=== PATIENT | male | born 1970 | race Caucasian/White ===

== ENCOUNTER 2020-02-28 09:39 | Emergency (ER) | payer SELFPAY ==
[2020-02-28] MEDS ORDERED: DEXAMETHASONE 4 MG TABLET PO ONE (11:49)
[2020-02-28] MEDS ORDERED: PENICILLIN G BENZATHINE 1.2 MILLION UNIT/2 ML DISP.SYRIN IM ONE (11:49)
--- NOTE | 2020-02-28 11:50 | ER Document Report ---
HPI - HPI Time Seen by Provider: 02/28/20 10:40 Pain Level: 2 Notes: 49-year-old male patient presenting with sore throat and body aches that began 2 days ago. Patient reports he did have a fever 2 days ago but has not had 1 since then. He is not concerned about Covid as he has not had any exposure to any people lately. He denies any chest pain or shortness of breath. He reports he has pain with swallowing but is able to swallow without difficulty. - ROS Systems Reviewed and Negative: Yes All other systems reviewed and negative - CONSTITUTIONAL Constitutional: DENIES: Fever, Chills - EENT EENT: REPORTS: Sore Throat. DENIES: Ear Pain, Eye problems - NEURO Neurology: DENIES: Headache, Weakness, Vision blurred, Dizzinesss / Vertigo - CARDIOVASCULAR Cardiovascular: DENIES: Chest pain - RESPIRATORY Respiratory: DENIES: Trouble Breathing, Coughing - GASTROINTESTINAL Gastrointestinal: DENIES: Abdominal Pain, Black / Bloody Stools - URINARY Urinary: DENIES: Dysuria, Urgency, Frequency - REPRODUCTIVE Reproductive: DENIES: : - MUSCULOSKELETAL Musculoskeletal: DENIES: Extremity pain Past Medical History - General Information source: Patient - Social History Smoking Status: Current Every Day Smoker Chew tobacco use (# tins/day): No Frequency of alcohol use: None Drug Abuse: None Family History: Reviewed & Not Pertinent Patient has homicidal ideation: No - Past Medical History Cardiac Medical History: Reports: Hx Hypertension Neurological Medical History: Denies: Hx Migraine - Immunizations Hx Diphtheria, Pertussis, Tetanus Vaccination: Yes Vertical Provider Document - CONSTITUTIONAL Notes: PHYSICAL EXAMINATION: GENERAL: Well-appearing, well-nourished and in no acute distress. HEAD: Atraumatic, normocephalic. EYES: Pupils equal round extraocular movements intact, conjunctiva are normal. ENT: Nares patent, oropharynx erythematous, tonsillar swelling noted with exudates, no evidence of peritonsillar abscess, uvula midline. NECK: Normal range of motion, no cervical lymphadenopathy. LUNGS: No respiratory distress, lung sounds clear and equal bilaterally. Musculoskeletal: Normal range of motion NEUROLOGICAL: Normal speech, normal gait. PSYCH: Normal mood, normal affect. SKIN: Warm, Dry, normal turgor, no rashes or lesions noted. - INFECTION CONTROL TRAVEL OUTSIDE OF THE [place] IN LAST 30 DAYS: No Course - Re-evaluation Re-evalutation: Laboratory 02/28/20 10:38 Group A Strep Rapid POSITIVE Patient was positive for strep on the rapid strep test. He appears well, nontoxic he has been eating and drinking in the lobby without difficulty. He was treated with Decadron and intramuscular penicillin. ED return precautions discussed. - Vital Signs Vital signs: Temp Pulse Resp BP Pulse Ox 98.0 F 97 18 120/64 99 02/28/20 09:45 02/28/20 09:45 02/28/20 09:45 02/28/20 09:45 02/28/20 09:45 Discharge - Discharge Clinical Impression: Strep pharyngitis Condition: Stable Disposition: HOME, SELF-CARE Instructions: Strep Throat ([facility]) Additional Instructions: Please see enclosed handout sheet for strep throat. You were given a one-time dose of penicillin here in the emergency department. You do not need any further antibiotics. You are also given a dose of Decadron. This is a steroid that should help with inflammation. Please take ibuprofen 600 mg every 6 hours. Return if you are unable to swallow or have difficulty breathing. Referrals: [facility],NO [Primary Care Provider] - Follow up as needed
[2020-02-28 12:25] VITALS: BP 120/83
== END 2020-02-28 12:23 | disposition home or self-care (01) ==
LOC: ER 09:39
DX: J02.0 Streptococcal pharyngitis (principal); F17.200 Nicotine dependence, unspecified, uncomplicated; I10 Essential (primary) hypertension
CPT/HCPCS: 99284; 96372; 87880; J8540; J0561